=== PATIENT | male | born 1940 | race Caucasian/White ===

== ENCOUNTER → 2016-09-10 | Outpatient (CLI) | payer MEDICARE, BC ==
[~2016-09-10] MED LIST: ALBUTEROL0.09 MG/A4 IH; ALLEGRA180 MG PO; ASPIRIN ADULT L81 M3 PO; ATORVASTATIN CA10 MG PO; CARDIZEM LA180 MG PO; CEPHALEXIN500 M2 PO; FAMOTIDINE40 MG PO; GOOD SENSE ASPI81 M1 PO; LEADER OMEPRAZO20 MG PO; LEVOTHYROXINE0.05 MG PO; METOPROLOL SUCC50 M1 PO; METRONIDAZOLE500 MG PO; MEVACOR 20M20 MG/TAB; NITROQUICK0.4 MG SL; PREDNISONE10 M1 PO; PREDNISONE20 M1 PO; RAPAFLO8 MG PO; TOPROL XL 25MG25 MG PO; TOPROL XL50 MG PO; TRIAMCINOLONE0.1% TP; ULTRAM 50MG TAB50 MG PO
== END ==
LOC: LAB 06:45
DX: I10 Essential (primary) hypertension (principal); E55.9 Vitamin D deficiency, unspecified; E78.00 Pure hypercholesterolemia, unspecified

== ENCOUNTER → 2017-02-06 | Outpatient (CLI) | payer MEDICARE, BC ==
[2016-03-26 10:36] VITALS: BP 147/61
== END ==
LOC: LAB 10:46
DX: J02.8 Acute pharyngitis due to other specified organisms (principal)

== ENCOUNTER → 2017-03-09 | Outpatient (CLI) | payer MEDICARE, BC ==
[~2017-03-09] VITALS: Ht 172.7 cm; Wt 85.5 kg
[2017-03-09 11:00] VITALS: BP 154/61
== END ==
LOC: AMSURD 10:41
DX: Z01.818 Encounter for other preprocedural examination (principal); I10 Essential (primary) hypertension; I49.9 Cardiac arrhythmia, unspecified; I25.810 Atherosclerosis of coronary artery bypass graft(s) without angina pectoris

== ENCOUNTER → 2017-09-01 | Outpatient (CLI) | payer MEDICARE, BC ==
[2017-03-09 11:00] VITALS: BP 154/61
== END ==
LOC: LAB 14:04
DX: R53.81 Other malaise (principal); J02.8 Acute pharyngitis due to other specified organisms

== ENCOUNTER → 2018-10-13 | Outpatient (CLI) | payer MEDICARE, BC ==
[2017-03-09 11:00] VITALS: BP 154/61
[2018-10-13 11:01] LABS: URINE APPEARANCE CLEAR; URINE BILIRUBIN NEGATIVE (NEGATIVE); URINE BLOOD NEGATIVE (NEGATIVE); URINE COLOR YELLOW; URINE GLUCOSE NEGATIVE (NEGATIVE); URINE KETONE NEGATIVE (NEGATIVE); URINE LEUKOCYTE ESTERASE NEGATIVE (NEGATIVE); URINE MUCUS PRESENT (NOT PRESENT); URINE NITRATE NEGATIVE (NEGATIVE); URINE PROTEIN(semi-quant) TRACE mg/dL (NEGATIVE); URINE UROBILINOGEN NORMAL (NORMAL)
== END ==
LOC: LAB 10:23
PROVIDERS: Family Medicine
DX: N39.9 Disorder of urinary system, unspecified (principal)

== ENCOUNTER → 2018-10-20 | Outpatient (CLI) | payer MEDICARE, BC ==
[2017-03-09 11:00] VITALS: BP 154/61
[2018-10-20 07:26] LABS: ALBUMIN 4.1 g/dL (3.5-5.0); CALCIUM 9.3 mg/dL (8.4-10.2); POTASSIUM 4.5 mmol/L (3.6-5.0); TOTAL BILIRUBIN 0.6 mg/dL (0.2-1.3); TOTAL PROTEIN 7.9 g/dL (6.3-8.2)
== END ==
LOC: LAB 06:49
PROVIDERS: Family Medicine
DX: E03.9 Hypothyroidism, unspecified (principal); I10 Essential (primary) hypertension; I25.810 Atherosclerosis of coronary artery bypass graft(s) without angina pectoris; E55.9 Vitamin D deficiency, unspecified

== ENCOUNTER → 2019-03-30 | Outpatient (CLI) | payer MEDICARE, BC ==
[2017-03-09 11:00] VITALS: BP 154/61
== END ==
LOC: LAB 10:08
DX: R06.02 Shortness of breath (principal)

== ENCOUNTER → 2019-05-18 | Outpatient (CLI) | payer MEDICARE, BC ==
[2017-03-09 11:00] VITALS: BP 154/61
[2019-05-20 15:23] LABS: ANGIOTENSIN CONVERTING ENZYME <5 U/L (16 - 85)
[2019-05-22 18:39] LABS: ANA SCREEN with REFLEX Indeterminate (Negative)
== END ==
LOC: LAB 15:12
PROVIDERS: Internal Medicine Pulmonary Disease
DX: I27.20 Pulmonary hypertension, unspecified (principal)

== ENCOUNTER → 2019-05-30 | Outpatient (CLI) | payer MEDICARE, BC ==
[2017-03-09 11:00] VITALS: BP 154/61
== END ==
LOC: LAB 14:52
DX: E03.9 Hypothyroidism, unspecified (principal)

== ENCOUNTER → 2019-09-05 | Outpatient (CLI) | payer MEDICARE, BC ==
[2019-09-03 10:43] VITALS: BP 130/65
[~2019-09-05] MED LIST changes: +ALLEGRA ALLERG180 MG PO; -ALLEGRA180 MG PO; +RT ADVAIR HFA 1112 G IH
== END ==
LOC: LAB 16:18
DX: L30.9 Dermatitis, unspecified (principal); D49.89 Neoplasm of unspecified behavior of other specified sites; I10 Essential (primary) hypertension; N40.1 Benign prostatic hyperplasia with lower urinary tract symptoms; R06.00 Dyspnea, unspecified; R59.9 Enlarged lymph nodes, unspecified

== ENCOUNTER → 2019-10-24 | Outpatient (CLI) | payer MEDICARE, BC ==
[2019-09-03 10:43] VITALS: BP 130/65
[2019-10-24 07:41] LABS: POTASSIUM 4.6 mmol/L (3.5-5.1)
[2019-10-24 07:42] LABS: CALCIUM 10.3 mg/dL (8.3-10.5)
[2019-10-24 07:44] LABS: TOTAL PROTEIN 7.7 g/dL (6.2-8.1)
[2019-10-24 07:46] LABS: TOTAL BILIRUBIN 0.6 mg/dL (0.2-1.2)
== END ==
LOC: LAB 07:12
PROVIDERS: Family Medicine
DX: I10 Essential (primary) hypertension (principal); E78.5 Hyperlipidemia, unspecified; E03.9 Hypothyroidism, unspecified

== ENCOUNTER → 2019-12-20 | Outpatient (CLI) | payer MEDICARE, BC ==
[2019-09-03 10:43] VITALS: BP 130/65
[2019-12-20 08:11] LABS: BASO # 0.1 (0.02-0.10); EOS # 0.3 (0.04-0.40); HEMATOCRIT 44.9 % (42.0-52.0); HEMOGLOBIN 15.1 g/dL (13.5-18.0); LYMPH# 2.8 (1.50-4.00); MEAN CELL VOLUME 88 fl (78-100); MEAN CORPUSCULAR HEMOGLOBIN 30 pg (27-31); MEAN CORPUSCULAR HGB CONC 34 g/dL (33-37); MEAN PLATELET VOLUME 9.4 fl (7.4-10.4); MONO # 0.8 (0.20-0.80); NEU # 4.5 (1.40-6.50); PLATELET COUNT 264 K/mm3 (130-400); RED BLOOD COUNT 5.09 M/mm3 (4.20-5.60); RED CELL DISTRIBUTION WIDTH 12.6 % (11.5-14.5); WHITE BLOOD COUNT 8.4 K/mm3 (4.8-10.8)
[2019-12-20 08:26] LABS: ALBUMIN 4.1 g/dL (3.4-4.8); POTASSIUM 4.6 mmol/L (3.5-5.1)
[2019-12-20 08:28] LABS: CALCIUM 9.5 mg/dL (8.3-10.5)
[2019-12-20 08:29] LABS: TOTAL PROTEIN 7.7 g/dL (6.2-8.1)
[2019-12-20 08:31] LABS: TOTAL BILIRUBIN 0.7 mg/dL (0.2-1.2)
== END ==
LOC: RAD 07:56
PROVIDERS: Internal Medicine
DX: C91.10 Chronic lymphocytic leukemia of B-cell type not having achieved remission (principal); J84.10 Pulmonary fibrosis, unspecified; J98.4 Other disorders of lung; I71.9 Aortic aneurysm of unspecified site, without rupture; N28.89 Other specified disorders of kidney and ureter
CPT/HCPCS: Q9967

== ENCOUNTER → 2020-03-14 | Outpatient (CLI) | payer MEDICARE, BC ==
[2019-09-03 10:43] VITALS: BP 130/65
[2020-03-14 11:33] LABS: POTASSIUM 4.3 mmol/L (3.5-5.1)
[2020-03-14 11:34] LABS: CALCIUM 9.1 mg/dL (8.3-10.5)
== END ==
LOC: LAB 11:02
PROVIDERS: Family Medicine
DX: E03.9 Hypothyroidism, unspecified (principal); I25.810 Atherosclerosis of coronary artery bypass graft(s) without angina pectoris

== ENCOUNTER → 2020-04-23 | Outpatient (CLI) | payer MEDICARE, BC ==
[2019-09-03 10:43] VITALS: BP 130/65
== END ==
LOC: LAB 07:42
DX: C91.10 Chronic lymphocytic leukemia of B-cell type not having achieved remission (principal)

== ENCOUNTER → 2020-04-25 | Outpatient (CLI) | payer MEDICARE, BC ==
[2019-09-03 10:43] VITALS: BP 130/65
[2020-04-23 08:04] LABS: EOS # 0.2 (0.04-0.40); HEMATOCRIT 41.5 % (42.0-52.0); HEMOGLOBIN 14.2 g/dL (13.5-18.0); LYMPH# 2.8 (1.50-4.00); MEAN CELL VOLUME 88 fl (78-100); MEAN CORPUSCULAR HEMOGLOBIN 30 pg (27-31); MEAN CORPUSCULAR HGB CONC 34 g/dL (33-37); MEAN PLATELET VOLUME 9.7 fl (7.4-10.4); MONO # 0.8 (0.20-0.80); NEU # 4.1 (1.40-6.50); PLATELET COUNT 242 K/mm3 (130-400); RED BLOOD COUNT 4.73 M/mm3 (4.20-5.60); RED CELL DISTRIBUTION WIDTH 12.4 % (11.5-14.5); WHITE BLOOD COUNT 7.9 K/mm3 (4.8-10.8)
[2020-04-23 08:09] LABS: ALBUMIN 3.9 g/dL (3.4-4.8)
[2020-04-23 08:10] LABS: POTASSIUM 4.7 mmol/L (3.5-5.1)
[2020-04-23 08:11] LABS: CALCIUM 9.2 mg/dL (8.3-10.5)
[2020-04-23 08:12] LABS: TOTAL PROTEIN 7.4 g/dL (6.2-8.1)
[2020-04-23 08:14] LABS: TOTAL BILIRUBIN 0.6 mg/dL (0.2-1.2)
== END ==
LOC: RAD 07:25
PROVIDERS: Internal Medicine
DX: C91.10 Chronic lymphocytic leukemia of B-cell type not having achieved remission (principal)
CPT/HCPCS: Q9967

== ENCOUNTER → 2020-08-27 | Outpatient (CLI) | payer MEDICARE, BC ==
[2020-04-28 20:01] VITALS: BP 137/53
[~2020-08-27] MED LIST changes: +CARTIA XT180 MG PO; +EUTHYROX75 MCG PO; +FAMOTIDINE20 MG PO; +LISINOPRIL2.5 MG PO; +ZOFRAN ODT4 MG PO
[2020-08-27 10:21] LABS: EOS # 0.3 (0.04-0.40); EOS % 3.2 % (0.0-4.0); HEMATOCRIT 43.2 % (42.0-52.0); HEMOGLOBIN 14.3 g/dL (13.5-18.0); LYMPH# 2.3 (1.50-4.00); MEAN CELL VOLUME 88 fl (78-100); MEAN CORPUSCULAR HEMOGLOBIN 29 pg (27-31); MEAN CORPUSCULAR HGB CONC 33 g/dL (33-37); MEAN PLATELET VOLUME 9.1 fl (7.4-10.4); MONO # 0.9 (0.20-0.80); PLATELET COUNT 271 K/mm3 (130-400); RED BLOOD COUNT 4.89 M/mm3 (4.20-5.60); RED CELL DISTRIBUTION WIDTH 12.4 % (11.5-14.5); WHITE BLOOD COUNT 8.4 K/mm3 (4.8-10.8)
[2020-08-27 10:28] LABS: POTASSIUM 4.5 mmol/L (3.5-5.1)
[2020-08-27 10:30] LABS: CALCIUM 9.4 mg/dL (8.3-10.5)
[2020-08-27 10:31] LABS: TOTAL PROTEIN 7.5 g/dL (6.2-8.1)
[2020-08-27 10:33] LABS: TOTAL BILIRUBIN 0.7 mg/dL (0.2-1.2)
== END ==
LOC: LAB 09:59
PROVIDERS: Internal Medicine
DX: C91.10 Chronic lymphocytic leukemia of B-cell type not having achieved remission (principal)

== ENCOUNTER → 2020-08-28 | Outpatient (CLI) | payer MEDICARE, BC ==
[2020-04-28 20:01] VITALS: BP 137/53
== END ==
LOC: RAD 08:00
DX: C91.10 Chronic lymphocytic leukemia of B-cell type not having achieved remission (principal); R59.0 Localized enlarged lymph nodes; Z90.49 Acquired absence of other specified parts of digestive tract
CPT/HCPCS: Q9967

== ENCOUNTER → 2020-09-10 | Outpatient (CLI) | payer MEDICARE, BC ==
[2020-04-28 20:01] VITALS: BP 137/53
== END ==
LOC: RAD 07:04
DX: C91.10 Chronic lymphocytic leukemia of B-cell type not having achieved remission (principal)

== ENCOUNTER → 2020-09-13 | Outpatient (CLI) | payer MEDICARE, BC ==
[2020-04-28 20:01] VITALS: BP 137/53
[2020-09-13 09:50] LABS: EOS # 0.2 (0.04-0.40); EOS % 2.3 % (0.0-4.0); HEMOGLOBIN 14.3 g/dL (13.5-18.0); LYMPH# 2.8 (1.50-4.00); MEAN CELL VOLUME 89 fl (78-100); MEAN CORPUSCULAR HEMOGLOBIN 29 pg (27-31); MEAN CORPUSCULAR HGB CONC 33 g/dL (33-37); MEAN PLATELET VOLUME 9.3 fl (7.4-10.4); NEU # 4.5 (1.40-6.50); PLATELET COUNT 232 K/mm3 (130-400); RED BLOOD COUNT 4.86 M/mm3 (4.20-5.60); RED CELL DISTRIBUTION WIDTH 12.7 % (11.5-14.5); WHITE BLOOD COUNT 8.5 K/mm3 (4.8-10.8)
[2020-09-13 11:35] LABS: POTASSIUM 4.4 mmol/L (3.5-5.1)
== END ==
LOC: LAB 09:34
PROVIDERS: Family Medicine
DX: N18.30 Chronic kidney disease, stage 3 unspecified (principal); M70.22 Olecranon bursitis, left elbow

== ENCOUNTER → 2020-12-25 | Outpatient (CLI) | payer MEDICARE, BC ==
[2020-04-28 20:01] VITALS: BP 137/53
[2020-12-25 10:50] LABS: BASO # 0.04 (0.02-0.10); EOS # 0.23 (0.04-0.40); EOS % 3.2 % (0.0-4.0); HEMATOCRIT 38.5 % (42.0-52.0); HEMOGLOBIN 13.2 g/dL (13.5-18.0); LYMPH# 1.77 (1.50-4.00); MEAN CELL VOLUME 87 fl (78-100); MEAN CORPUSCULAR HEMOGLOBIN 30 pg (27-31); MEAN CORPUSCULAR HGB CONC 34 g/dL (33-37); MONO # 0.88 (0.20-0.80); NEU # 4.17 (1.40-6.50); PLATELET COUNT 217 K/mm3 (130-400); RED BLOOD COUNT 4.41 M/mm3 (4.20-5.60); RED CELL DISTRIBUTION WIDTH 11.9 % (11.5-14.5); WHITE BLOOD COUNT 7.1 K/mm3 (4.8-10.8)
[2020-12-25 10:57] LABS: ALBUMIN 3.9 g/dL (3.4-4.8); POTASSIUM 4.4 mmol/L (3.5-5.1)
[2020-12-25 10:58] LABS: CALCIUM 9.4 mg/dL (8.3-10.5)
[2020-12-25 11:00] LABS: TOTAL PROTEIN 7.2 g/dL (6.2-8.1)
[2020-12-25 11:01] LABS: TOTAL BILIRUBIN 0.9 mg/dL (0.2-1.2)
== END ==
LOC: LAB 10:35
PROVIDERS: Internal Medicine
DX: C91.10 Chronic lymphocytic leukemia of B-cell type not having achieved remission (principal)

== ENCOUNTER → 2020-12-27 | Outpatient (CLI) | payer MEDICARE, BC ==
[2020-04-28 20:01] VITALS: BP 137/53
== END ==
LOC: RAD 08:29
DX: C91.10 Chronic lymphocytic leukemia of B-cell type not having achieved remission (principal); J98.4 Other disorders of lung; K57.32 Diverticulitis of large intestine without perforation or abscess without bleeding; R59.0 Localized enlarged lymph nodes; I71.4 Abdominal aortic aneurysm, without rupture; Z90.49 Acquired absence of other specified parts of digestive tract
CPT/HCPCS: Q9967

== ENCOUNTER → 2021-01-16 | Outpatient (CLI) | payer MEDICARE, BC ==
[2020-04-28 20:01] VITALS: BP 137/53
== END ==
LOC: LAB 07:04
DX: I25.10 Atherosclerotic heart disease of native coronary artery without angina pectoris (principal)

== ENCOUNTER 2021-02-28 13:58 | Outpatient (RCR) | payer MEDICARE, BC | END 2021-05-29 | disposition home or self-care (01) | LOC: PT | DX: H81.12 Benign paroxysmal vertigo, left ear (principal) ==

== ENCOUNTER → 2021-03-20 | Outpatient (CLI) | payer MEDICARE, BC ==
[2021-03-20 08:40] LABS: BASO # 0.03 (0.02-0.10); EOS # 0.22 (0.04-0.40); EOS % 3.1 % (0.0-4.0); HEMATOCRIT 40.8 % (42.0-52.0); HEMOGLOBIN 13.7 g/dL (13.5-18.0); LYMPH# 1.75 (1.50-4.00); MEAN CELL VOLUME 89 fl (78-100); MEAN CORPUSCULAR HEMOGLOBIN 30 pg (27-31); MEAN CORPUSCULAR HGB CONC 34 g/dL (33-37); MEAN PLATELET VOLUME 8.9 fl (7.4-10.4); MONO # 0.79 (0.20-0.80); NEU # 4.21 (1.40-6.50); PLATELET COUNT 230 K/mm3 (130-400); RED BLOOD COUNT 4.58 M/mm3 (4.20-5.60); RED CELL DISTRIBUTION WIDTH 11.9 % (11.5-14.5)
[2021-03-20 08:52] LABS: POTASSIUM 4.4 mmol/L (3.5-5.1)
[2021-03-20 08:53] LABS: CALCIUM 9.3 mg/dL (8.3-10.5)
[2021-03-20 08:59] LABS: PROTHROMBIN TIME 9.9 SECONDS (9.0-12.0)
== END ==
LOC: RAD 08:16
PROVIDERS: Family Medicine
DX: D49.4 Neoplasm of unspecified behavior of bladder (principal); Z98.890 Other specified postprocedural states

== ENCOUNTER → 2021-03-29 | Outpatient (CLI) | payer MEDICARE, BC | LOC: LAB 09:52 | DX: Z20.822 Contact with and (suspected) exposure to COVID-19 (principal) ==

== ENCOUNTER → 2021-04-22 | Outpatient (CLI) | payer MEDICARE, BC ==
[~2021-04-22] VITALS: Ht 172.7 cm; Wt 89.1 kg
[2021-04-22 11:24] LABS: ALBUMIN 3.6 g/dL (3.4-4.8); BASO # 0.02 (0.02-0.10); EOS # 0.18 (0.04-0.40); EOS % 2.8 % (0.0-4.0); HEMATOCRIT 39.2 % (42.0-52.0); HEMOGLOBIN 13.2 g/dL (13.5-18.0); LYMPH# 1.38 (1.50-4.00); MEAN CELL VOLUME 89 fl (78-100); MEAN CORPUSCULAR HEMOGLOBIN 30 pg (27-31); MEAN CORPUSCULAR HGB CONC 34 g/dL (33-37); MEAN PLATELET VOLUME 9.2 fl (7.4-10.4); MONO # 0.88 (0.20-0.80); NEU # 4.01 (1.40-6.50); PLATELET COUNT 220 K/mm3 (130-400); POTASSIUM 4.1 mmol/L (3.5-5.1); RED BLOOD COUNT 4.42 M/mm3 (4.20-5.60); RED CELL DISTRIBUTION WIDTH 12.3 % (11.5-14.5); WHITE BLOOD COUNT 6.5 K/mm3 (4.8-10.8)
[2021-04-22 11:26] LABS: CALCIUM 10.5 mg/dL (8.3-10.5)
[2021-04-22 11:27] LABS: TOTAL PROTEIN 6.8 g/dL (6.2-8.1)
[2021-04-22 11:29] LABS: TOTAL BILIRUBIN 0.8 mg/dL (0.2-1.2)
[2021-04-22 11:39] LABS: TROPONIN-I 0.27 ng/mL (<0.030)
[2021-04-22 14:29] VITALS: BP 146/52
== END ==
LOC: LAB 10:36 → AMSURD 10:36
PROVIDERS: Nurse Practitioner
DX: I21.9 Acute myocardial infarction, unspecified (principal); I44.30 Unspecified atrioventricular block
CPT/HCPCS: J0696

== ENCOUNTER → 2021-05-06 | Outpatient (CLI) | payer MEDICARE, BC ==
[2021-05-06 10:57] LABS: BASO # 0.05 (0.02-0.10); EOS # 0.22 (0.04-0.40); EOS % 2.9 % (0.0-4.0); HEMATOCRIT 39.3 % (42.0-52.0); HEMOGLOBIN 13.3 g/dL (13.5-18.0); LYMPH# 2.05 (1.50-4.00); MEAN CELL VOLUME 89 fl (78-100); MEAN CORPUSCULAR HEMOGLOBIN 30 pg (27-31); MEAN CORPUSCULAR HGB CONC 34 g/dL (33-37); MEAN PLATELET VOLUME 8.9 fl (7.4-10.4); MONO # 0.82 (0.20-0.80); NEU # 4.54 (1.40-6.50); PLATELET COUNT 224 K/mm3 (130-400); RED BLOOD COUNT 4.42 M/mm3 (4.20-5.60); RED CELL DISTRIBUTION WIDTH 12.2 % (11.5-14.5); WHITE BLOOD COUNT 7.7 K/mm3 (4.8-10.8)
[2021-05-06 10:59] LABS: ALBUMIN 3.8 g/dL (3.4-4.8); POTASSIUM 4.3 mmol/L (3.5-5.1)
[2021-05-06 11:01] LABS: CALCIUM 9.5 mg/dL (8.3-10.5)
[2021-05-06 11:02] LABS: TOTAL PROTEIN 7.3 g/dL (6.2-8.1)
[2021-05-06 11:04] LABS: TOTAL BILIRUBIN 0.6 mg/dL (0.2-1.2)
== END ==
LOC: LAB 10:40
PROVIDERS: Internal Medicine
DX: C91.10 Chronic lymphocytic leukemia of B-cell type not having achieved remission (principal)

== ENCOUNTER → 2021-05-07 | Outpatient (CLI) | payer MEDICARE, BC | LOC: RAD 08:00 | DX: R59.0 Localized enlarged lymph nodes (principal); C91.10 Chronic lymphocytic leukemia of B-cell type not having achieved remission; Z90.49 Acquired absence of other specified parts of digestive tract | CPT/HCPCS: Q9967 ==

== ENCOUNTER → 2021-08-20 | Outpatient (CLI) | payer MEDICARE, BC ==
[~2021-08-20] MED LIST changes: +FLUTICASON0.05 MG/Ac NS
== END ==
LOC: RAD 12:58 → LAB 12:58 → RAD 13:00
DX: C91.10 Chronic lymphocytic leukemia of B-cell type not having achieved remission (principal)
CPT/HCPCS: Q9967

== ENCOUNTER → 2021-08-21 | Outpatient (CLI) | payer MEDICARE, BC ==
[2021-08-21 13:04] LABS: BASO # 0.04 K/mm3 (0.02-0.10); EOS # 0.04 K/mm3 (0.04-0.40); EOS % 0.6 % (0.0-4.0); HEMATOCRIT 42.5 % (42.0-52.0); HEMOGLOBIN 14.5 g/dL (13.5-18.0); LYMPH# 0.91 K/mm3 (1.50-4.00); MEAN CELL VOLUME 87 fl (78-100); MEAN CORPUSCULAR HEMOGLOBIN 30 pg (27-31); MEAN CORPUSCULAR HGB CONC 34 g/dL (33-37); MEAN PLATELET VOLUME 8.9 fl (7.4-10.4); MONO # 0.97 K/mm3 (0.20-0.80); NEU # 4.87 K/mm3 (1.40-6.50); PLATELET COUNT 208 K/mm3 (130-400); RED BLOOD COUNT 4.88 M/mm3 (4.20-5.60); RED CELL DISTRIBUTION WIDTH 12.2 % (11.5-14.5); WHITE BLOOD COUNT 6.8 K/mm3 (4.8-10.8)
== END ==
LOC: LAB 12:51
PROVIDERS: Family Medicine
DX: J06.0 Acute laryngopharyngitis (principal)

== ENCOUNTER → 2021-08-23 | Outpatient (CLI) | payer MEDICARE, BC ==
[~2021-08-23] VITALS: Ht 172.7 cm; Wt 89.1 kg
[2021-08-23 13:15] VITALS: BP 144/60
== END ==
LOC: AMSURD 08-22 23:47
DX: J06.0 Acute laryngopharyngitis (principal); I10 Essential (primary) hypertension; K21.9 Gastro-esophageal reflux disease without esophagitis; I25.10 Atherosclerotic heart disease of native coronary artery without angina pectoris; E55.9 Vitamin D deficiency, unspecified; Z20.822 Contact with and (suspected) exposure to COVID-19; Z23 Encounter for immunization
CPT/HCPCS: M0247; Q0247

== ENCOUNTER → 2021-09-05 | Outpatient (CLI) | payer MEDICARE, BC ==
[2021-09-05 16:57] LABS: POTASSIUM 4.6 mmol/L (3.5-5.1)
[2021-09-05 16:58] LABS: CALCIUM 9.6 mg/dL (8.3-10.5)
[2021-09-05 17:05] LABS: MAGNESIUM 2.16 mg/dL (1.60-2.60)
== END ==
LOC: LAB 16:28
PROVIDERS: Family Medicine
DX: F41.9 Anxiety disorder, unspecified (principal)

== ENCOUNTER → 2021-09-26 | Outpatient (CLI) | payer MEDICARE, BC ==
[2021-09-26 17:14] LABS: BASO # 0.06 K/mm3 (0.02-0.10); EOS # 0.22 K/mm3 (0.04-0.40); HEMATOCRIT 38.6 % (42.0-52.0); HEMOGLOBIN 13.2 g/dL (13.5-18.0); LYMPH# 1.99 K/mm3 (1.50-4.00); MEAN CELL VOLUME 89 fl (78-100); MEAN CORPUSCULAR HEMOGLOBIN 30 pg (27-31); MEAN CORPUSCULAR HGB CONC 34 g/dL (33-37); MEAN PLATELET VOLUME 8.6 fl (7.4-10.4); MONO # 0.99 K/mm3 (0.20-0.80); NEU # 3.98 K/mm3 (1.40-6.50); PLATELET COUNT 320 K/mm3 (130-400); RED BLOOD COUNT 4.36 M/mm3 (4.20-5.60); RED CELL DISTRIBUTION WIDTH 12.7 % (11.5-14.5); WHITE BLOOD COUNT 7.3 K/mm3 (4.8-10.8)
== END ==
LOC: LAB 16:49
PROVIDERS: Internal Medicine
DX: C91.10 Chronic lymphocytic leukemia of B-cell type not having achieved remission (principal)

== ENCOUNTER → 2021-12-16 | Outpatient (CLI) | payer MEDICARE, BC | LOC: RAD 09:00 | DX: C91.10 Chronic lymphocytic leukemia of B-cell type not having achieved remission (principal) | CPT/HCPCS: Q9967 ==

== ENCOUNTER → 2022-01-10 | Outpatient (CLI) | payer MEDICARE, BC | LOC: LAB 10:30 | DX: G25.81 Restless legs syndrome (principal); N40.1 Benign prostatic hyperplasia with lower urinary tract symptoms; E03.9 Hypothyroidism, unspecified ==

== ENCOUNTER → 2022-04-11 | Outpatient (CLI) | payer MEDICARE, BC ==
[2022-04-11 09:57] LABS: BASO # 0.04 K/mm3 (0.02-0.10); EOS # 0.19 K/mm3 (0.04-0.40); EOS % 2.4 % (0.0-4.0); HEMATOCRIT 38.6 % (42.0-52.0); HEMOGLOBIN 13.1 g/dL (13.5-18.0); LYMPH# 1.51 K/mm3 (1.50-4.00); MEAN CELL VOLUME 87 fl (78-100); MEAN CORPUSCULAR HEMOGLOBIN 30 pg (27-31); MEAN CORPUSCULAR HGB CONC 34 g/dL (33-37); MEAN PLATELET VOLUME 8.8 fl (7.4-10.4); MONO # 0.72 K/mm3 (0.20-0.80); PLATELET COUNT 241 K/mm3 (130-400); RED BLOOD COUNT 4.43 M/mm3 (4.20-5.60); RED CELL DISTRIBUTION WIDTH 12.5 % (11.5-14.5); WHITE BLOOD COUNT 8.1 K/mm3 (4.8-10.8)
[2022-04-11 10:11] LABS: ALBUMIN 3.8 g/dL (3.4-4.8); POTASSIUM 3.9 mmol/L (3.5-5.1)
[2022-04-11 10:13] LABS: CALCIUM 9.2 mg/dL (8.3-10.5)
[2022-04-11 10:14] LABS: TOTAL PROTEIN 6.7 g/dL (6.2-8.1)
[2022-04-11 10:16] LABS: TOTAL BILIRUBIN 0.6 mg/dL (0.2-1.2)
== END ==
LOC: LAB 09:33
PROVIDERS: Internal Medicine
DX: C91.10 Chronic lymphocytic leukemia of B-cell type not having achieved remission (principal)

== ENCOUNTER → 2022-04-16 | Outpatient (CLI) | payer MEDICARE, BC | LOC: RAD 09:52 | DX: Z08 Encounter for follow-up examination after completed treatment for malignant neoplasm (principal); Z85.72 Personal history of non-Hodgkin lymphomas; K76.0 Fatty (change of) liver, not elsewhere classified; K57.90 Diverticulosis of intestine, part unspecified, without perforation or abscess without bleeding | CPT/HCPCS: Q9967 ==

== ENCOUNTER → 2022-07-01 | Outpatient (CLI) | payer MEDICARE, BC ==
[~2022-07-01] MED LIST changes: +CARDIZEM CD 18180 MG PO; +ESCITALOPRAM5 MG PO; +FLOMAX0.4 MG PO; +FLOVENT DI100 MCG/Ac IH; +PROAIR HFA0.09 MG/AC IH; +ROPINIROLE HYD0.5 MG
[2022-07-01 08:09] LABS: ALBUMIN 4.1 g/dL (3.4-4.8); POTASSIUM 4.4 mmol/L (3.5-5.1)
[2022-07-01 08:10] LABS: CALCIUM 9.5 mg/dL (8.3-10.5)
[2022-07-01 08:11] LABS: TOTAL PROTEIN 7.3 g/dL (6.2-8.1)
== END ==
LOC: LAB 07:38
PROVIDERS: Family Medicine
DX: I25.10 Atherosclerotic heart disease of native coronary artery without angina pectoris (principal); E55.9 Vitamin D deficiency, unspecified

== ENCOUNTER 2022-09-10 08:00 | Outpatient (RCR) | payer MEDICARE, BC ==
[~2022-09-10 08:00] MED LIST changes: +BETAMETHASONE D1 CRE TP; +BRILINTA60 MG PO; +BRILINTA90 MG PO; +CEFUROXIME AXE250 MG PO; +CEPHALEXIN500 M1 PO; +CLOPIDOGREL75 M2 PO; +DILTIAZEM 24HR180 MG PO; +FEXOFENADINE H180 M1 PO; +FISH OIL 1,2001 EAC4 PO; +FLONASE ALLERG9.9 ML NS; +ISOSORBIDE MONO60 M2 PO; +LEVOTHYROXIN0.075 MG PO; +LIPITOR 80MG80 MG PO; +NITROSTAT0.4 M1 SL; +PROVENTIL0.09 MG/A1 IH; +VAZALORE81 MG PO; +VITAMIN D3125 MC1 PO
== END 2022-10-07 | disposition home or self-care (01) ==
LOC: CARDREHAB
DX: Z48.812 Encounter for surgical aftercare following surgery on the circulatory system (principal); Z95.5 Presence of coronary angioplasty implant and graft

== ENCOUNTER → 2022-10-06 | Outpatient (CLI) | payer MEDICARE, BC | LOC: AMSURD 15:07 | DX: I49.3 Ventricular premature depolarization (principal) ==

== ENCOUNTER 2022-10-08 08:00 | Outpatient (RCR) | payer MEDICARE, BC ==
[2022-10-20] MEDS ORDERED: SEPTRA DS 8001 TAB PO (18:29)
== END 2022-11-07 | disposition home or self-care (01) ==
LOC: CARDREHAB
DX: Z48.812 Encounter for surgical aftercare following surgery on the circulatory system (principal); Z95.5 Presence of coronary angioplasty implant and graft

== ENCOUNTER 2022-10-20 18:12 | Emergency (ER) | payer MEDICARE, BC ==
[2022-10-20] MEDS ORDERED: SEPTRA DS 8001 TAB PO (18:29)
[2022-10-20 19:19] LABS: BASO # 0.02 K/mm3 (0.02-0.10); EOS # 0.27 K/mm3 (0.04-0.40); EOS % 5.1 % (0.0-4.0); HEMOGLOBIN 12.1 g/dL (13.5-18.0); LYMPH# 0.91 K/mm3 (1.50-4.00); MEAN CELL VOLUME 91 fl (78-100); MEAN CORPUSCULAR HEMOGLOBIN 31 pg (27-31); MEAN CORPUSCULAR HGB CONC 34 g/dL (33-37); MEAN PLATELET VOLUME 9.3 fl (7.4-10.4); MONO # 0.75 K/mm3 (0.20-0.80); NEU # 3.31 K/mm3 (1.40-6.50); PLATELET COUNT 222 K/mm3 (130-400); RED BLOOD COUNT 3.94 M/mm3 (4.20-5.60); RED CELL DISTRIBUTION WIDTH 12.9 % (11.5-14.5); WHITE BLOOD COUNT 5.3 K/mm3 (4.8-10.8)
[2022-10-20 19:26] LABS: ALBUMIN 3.6 g/dL (3.4-4.8)
[2022-10-20 19:27] LABS: POTASSIUM 4.8 mmol/L (3.5-5.1)
[2022-10-20 19:29] LABS: TOTAL PROTEIN 6.3 g/dL (6.2-8.1)
[2022-10-20 19:30] LABS: CALCIUM 9.1 mg/dL (8.3-10.5)
[2022-10-20 19:31] LABS: TOTAL BILIRUBIN 0.4 mg/dL (0.2-1.2)
[2022-10-20 20:43] VITALS: BP 136/61
== END 2022-10-20 20:43 | disposition home or self-care (01) ==
LOC: ED 18:12
PROVIDERS: Nurse Practitioner
DX: L03.211 Cellulitis of face (principal)

== ENCOUNTER → 2022-11-11 | Outpatient (CLI) | payer MEDICARE, BC ==
[~2022-11-11] MED LIST changes: +SEPTRA DS 8001 TAB PO
[2022-11-11 10:12] LABS: BASO # 0.02 K/mm3 (0.02-0.10); EOS # 0.16 K/mm3 (0.04-0.40); EOS % 2.3 % (0.0-4.0); HEMATOCRIT 38.3 % (42.0-52.0); LYMPH# 1.08 K/mm3 (1.50-4.00); MEAN CELL VOLUME 89 fl (78-100); MEAN CORPUSCULAR HEMOGLOBIN 30 pg (27-31); MEAN CORPUSCULAR HGB CONC 34 g/dL (33-37); MEAN PLATELET VOLUME 8.9 fl (7.4-10.4); MONO # 0.97 K/mm3 (0.20-0.80); NEU # 4.83 K/mm3 (1.40-6.50); PLATELET COUNT 223 K/mm3 (130-400); RED BLOOD COUNT 4.32 M/mm3 (4.20-5.60); RED CELL DISTRIBUTION WIDTH 12.5 % (11.5-14.5); WHITE BLOOD COUNT 7.1 K/mm3 (4.8-10.8)
[2022-11-11 10:24] LABS: ALBUMIN 3.9 g/dL (3.4-4.8); POTASSIUM 4.2 mmol/L (3.5-5.1)
[2022-11-11 10:26] LABS: CALCIUM 9.4 mg/dL (8.3-10.5)
[2022-11-11 10:27] LABS: TOTAL PROTEIN 6.6 g/dL (6.2-8.1)
[2022-11-11 10:29] LABS: TOTAL BILIRUBIN 0.7 mg/dL (0.2-1.2)
== END ==
LOC: LAB 09:59
PROVIDERS: Internal Medicine
DX: C91.10 Chronic lymphocytic leukemia of B-cell type not having achieved remission (principal)

== ENCOUNTER 2023-04-06 11:57 | Inpatient (IN) | payer MEDICARE, BC ==
[~2023-04-06] VITALS: Ht 172.7 cm; Wt 81.3 kg
[~2023-04-06 11:57] MED LIST changes: +ADULT LOW DOSE81 MG PO; +APRESOLINE 10MG10 MG PO; +DOCUSATE SOD100 MG PO; +GABAPENTIN100 MG PO; +LASIX20 M1 PO; +LIDODERM1 EACH TP; +MIRALAX17 GM PO; +MOVANTIK12.5 MG PO; +NEURONTIN300 MG/CAP PO; +ONDANSETRON HYDR4 MG PO; +OXYCODONE HYDROC5 M1 PO; +PEPCID40 M1 PO; +ROPINIROLE HYD0.5 MG PO; +SENNA8.6 M1 PO; +SODIUM CHLORI1000 M4 PO; +TYLENOL #21 TAB PO
[2023-04-06 13:09] VITALS: BP 171/64
[2023-04-06 13:49] VITALS: BP 171/64
[2023-04-06 18:14] VITALS: BP 125/64; BP_SYST 154
[2023-04-06 22:00] VITALS: BP 148/63
[2023-04-07 02:20] VITALS: BP 133/55
[2023-04-07 05:53] VITALS: BP 141/53
[2023-04-07 06:14] LABS: BASO # 0.02 K/mm3 (0.02-0.10); EOS # 0.23 K/mm3 (0.04-0.40); EOS % 3.3 % (0.0-4.0); HEMATOCRIT 30.7 % (42.0-52.0); HEMOGLOBIN 10.4 g/dL (13.5-18.0); LYMPH# 0.84 K/mm3 (1.50-4.00); MEAN CELL VOLUME 90 fl (78-100); MEAN CORPUSCULAR HEMOGLOBIN 31 pg (27-31); MEAN CORPUSCULAR HGB CONC 34 g/dL (33-37); MEAN PLATELET VOLUME 8.3 fl (7.4-10.4); MONO # 0.56 K/mm3 (0.20-0.80); NEU # 5.24 K/mm3 (1.40-6.50); PLATELET COUNT 252 K/mm3 (130-400); RED BLOOD COUNT 3.41 M/mm3 (4.20-5.60); WHITE BLOOD COUNT 6.9 K/mm3 (4.8-10.8)
[2023-04-07 07:31] LABS: POTASSIUM 4.4 mmol/L (3.5-5.1)
[2023-04-07 07:32] LABS: CALCIUM 8.7 mg/dL (8.3-10.5)
[2023-04-07 07:33] LABS: TOTAL PROTEIN 5.8 g/dL (6.2-8.1)
[2023-04-07 07:35] LABS: TOTAL BILIRUBIN 0.7 mg/dL (0.2-1.2)
[2023-04-07 09:08] VITALS: BP 138/62
[2023-04-07 14:14] VITALS: BP 143/62
[2023-04-07 17:13] VITALS: BP 183/62
[2023-04-07 21:46] VITALS: BP 164/66
[2023-04-08 01:34] VITALS: BP 160/69
[2023-04-08 05:40] VITALS: BP 149/63
[2023-04-08 08:08] LABS: BASO # 0.02 K/mm3 (0.02-0.10); EOS # 0.26 K/mm3 (0.04-0.40); EOS % 3.2 % (0.0-4.0); HEMATOCRIT 31.5 % (42.0-52.0); LYMPH# 0.77 K/mm3 (1.50-4.00); MEAN CELL VOLUME 88 fl (78-100); MEAN CORPUSCULAR HEMOGLOBIN 31 pg (27-31); MEAN CORPUSCULAR HGB CONC 35 g/dL (33-37); MEAN PLATELET VOLUME 8.9 fl (7.4-10.4); MONO # 0.81 K/mm3 (0.20-0.80); NEU # 6.19 K/mm3 (1.40-6.50); PLATELET COUNT 306 K/mm3 (130-400); RED BLOOD COUNT 3.57 M/mm3 (4.20-5.60); WHITE BLOOD COUNT 8.1 K/mm3 (4.8-10.8)
[2023-04-08 08:14] LABS: ALBUMIN 3.2 g/dL (3.4-4.8); POTASSIUM 4.1 mmol/L (3.5-5.1)
[2023-04-08 08:18] LABS: TOTAL BILIRUBIN 0.6 mg/dL (0.2-1.2)
[2023-04-08 09:27] VITALS: BP 131/63
[2023-04-08 13:47] VITALS: BP 160/53
[2023-04-08 17:12] VITALS: BP 134/69
[2023-04-08 22:05] VITALS: BP 173/63
[2023-04-09 01:56] VITALS: BP 163/55
[2023-04-09] MEDS ORDERED: ZITHROMAX Z PA250 MG PO (02:55)
[2023-04-09] MEDS ORDERED: LEVOFLOXACIN500 M1 PO (02:56)
[2023-04-09 05:49] VITALS: BP 123/51
[2023-04-09 09:05] VITALS: BP 143/69
[2023-04-09 14:05] VITALS: BP 122/62
[2023-04-09 18:03] VITALS: BP 170/60
== END 2023-04-09 18:10 | disposition home or self-care (01) | DRG 177 ==
LOC: MED/SURG 11:57
PROVIDERS: Family Medicine; ADMIT Nurse Practitioner
DX: J69.0 Pneumonitis due to inhalation of food and vomit (principal); J96.01 Acute respiratory failure with hypoxia; R04.2 Hemoptysis; J84.10 Pulmonary fibrosis, unspecified; I48.91 Unspecified atrial fibrillation; Z90.49 Acquired absence of other specified parts of digestive tract; Z95.5 Presence of coronary angioplasty implant and graft; Z85.828 Personal history of other malignant neoplasm of skin; Z88.8 Allergy status to other drugs, medicaments and biological substances
CPT/HCPCS: J0696; J1836; J7030; Q9967

== ENCOUNTER → 2023-05-12 | Outpatient (CLI) | payer MEDICARE, BC ==
[~2023-05-12] MED LIST changes: +LEVOFLOXACIN500 M1 PO; +ZITHROMAX Z PA250 MG PO
[2023-05-12 11:08] LABS: URINE APPEARANCE CLEAR; URINE BILIRUBIN NEGATIVE (NEGATIVE); URINE BLOOD NEGATIVE (NEGATIVE); URINE COLOR YELLOW; URINE GLUCOSE NEGATIVE (NEGATIVE); URINE KETONE NEGATIVE (NEGATIVE); URINE LEUKOCYTE ESTERASE NEGATIVE (NEGATIVE); URINE NITRATE NEGATIVE (NEGATIVE); URINE PROTEIN(semi-quant) NEGATIVE (NEGATIVE); URINE UROBILINOGEN NORMAL (NORMAL); URINE WBC 0-1 /hpf (0-3)
== END ==
LOC: LAB 10:46
PROVIDERS: Internal Medicine
DX: N39.0 Urinary tract infection, site not specified (principal)